=== PATIENT | female | born 1985 | race Caucasian/White ===

== ENCOUNTER 2017-08-05 20:10 | Emergency (ER) | payer BC ==
[~2017-08-05] VITALS: Ht 162.6 cm; Wt 101.7 kg
[~2017-08-05 20:10] MED LIST: ENDOCET 5-3251 EACH PO; Motrin PO
[2017-08-05 23:00] VITALS: BP 128/90
== END 2017-08-05 23:01 | disposition home or self-care (01) ==
LOC: EME 20:10
DX: T65.891A Toxic effect of other specified substances, accidental (unintentional), initial encounter (principal); R06.00 Dyspnea, unspecified; R05 Cough; J02.9 Acute pharyngitis, unspecified; X58.XXXA Exposure to other specified factors, initial encounter; Y93.E9 Activity, other interior property and clothing maintenance
CPT/HCPCS: 71020; 93005; 99281; 99285; J8540